=== PATIENT | male | born 1955 | race Caucasian/White ===

== ENCOUNTER 2019-12-01 20:04 | Emergency (ER) | payer BC ==
[~2019-12-01] VITALS: Ht 177.8 cm; Wt 105.5 kg
[~2019-12-01 20:04] MED LIST: ASPIRIN 81M81 MG/TA2 PO
[2019-12-01 20:29] LABS: BASO # 0.1 (0.0-0.2); BASO % 1.2 % (0.0-2.0); EOS # 0.3 (0.0-0.7); EOS % 3.7 % (0-4.0); GRAN # 4.5 (1.4-6.5); GRAN % 53.5 % (42.2-75.2); HEMATOCRIT 46.5 % (42.0-52.0); HEMOGLOBIN 16.1 g/dl (13.5-18.0); LYMPH # 2.5 (1.2-3.4); LYMPH % 29.3 % (20.0-51.0); MEAN CELL VOLUME 96 fl (80.0-100.0); MEAN CORPUSCULAR HEMOGLOBIN 33 pg (27.0-31.0); MEAN CORPUSCULAR HGB CONC 35 g/dl (33.0-37.0); MONO % 11.8 % (1.7-9.3); PLATELET COUNT 205 K/mm3 (130-400); RED BLOOD COUNT 4.86 M/mm3 (4.20-5.60); REDCELL DISTRIBUTION WIDTH-CV 12.8 % (11.5-14.5)
[2019-12-01 20:40] LABS: PARTIAL THROMBOPLASTIN TIME 30.9 SECONDS (26.0-37.0)
[2019-12-01 21:17] LABS: ALBUMIN 4.3 gm/dL (3.5-5.0); BILIRUBIN,TOTAL 0.5 mg/dL (0.0-1.0); CALCIUM 10.2 mg/dL (8.4-10.2); CREATININE, serum 0.91 (0.66-1.25); POTASSIUM 4.1 mmol/L (3.4-5.0); TOTAL PROTEIN 7.9 gm/dL (6.4-8.2)
[2019-12-01 21:32] LABS: TROPONIN-I 0.102 ng/mL (0.000-0.035)
[2019-12-01 22:00] VITALS: BP 132/82; PULSE 72; TEMP 98.7
== END 2019-12-01 22:14 | disposition short-term general hospital (02) ==
LOC: COL.ER 20:04
PROVIDERS: Family Medicine
DX: I20.0 Unstable angina (principal); I10 Essential (primary) hypertension; F17.210 Nicotine dependence, cigarettes, uncomplicated; Z79.82 Long term (current) use of aspirin
CPT/HCPCS: J1644; J2060

== ENCOUNTER 2020-02-19 12:43 | Outpatient (RCR) | payer BC | END 2020-02-24 07:13 | disposition home or self-care (01) | LOC: COL.CR 12:43 | DX: Z48.812 Encounter for surgical aftercare following surgery on the circulatory system (principal); Z95.1 Presence of aortocoronary bypass graft; I21.4 Non-ST elevation (NSTEMI) myocardial infarction; I25.110 Atherosclerotic heart disease of native coronary artery with unstable angina pectoris ==

== ENCOUNTER 2020-05-18 15:23 | Outpatient (RCR) | payer SELFPAY | END 2020-05-22 | disposition home or self-care (01) | LOC: COL.CR | DX: Z02.89 Encounter for other administrative examinations (principal) ==

== ENCOUNTER 2020-08-12 16:00 | Outpatient (RCR) | payer SELFPAY | END 2020-08-21 | disposition still patient (30) | LOC: COL.CR | DX: Z02.89 Encounter for other administrative examinations (principal) ==

== ENCOUNTER 2020-11-18 14:27 | Outpatient (RCR) | payer SELFPAY | END 2020-11-20 | disposition home or self-care (01) | LOC: COL.CR | DX: Z02.89 Encounter for other administrative examinations (principal) ==

== ENCOUNTER 2021-08-21 14:56 | Outpatient (RCR) | payer SELFPAY | END 2021-08-24 | LOC: COL.CR | DX: Z29.8 Encounter for other specified prophylactic measures (principal) ==

== ENCOUNTER 2021-10-20 12:09 | Outpatient (RCR) | payer SELFPAY | END 2021-10-24 | LOC: COL.CR | DX: Z29.8 Encounter for other specified prophylactic measures (principal) ==

== ENCOUNTER 2021-11-22 14:56 | Outpatient (RCR) | payer SELFPAY | END 2021-11-23 | LOC: COL.CR | DX: Z29.8 Encounter for other specified prophylactic measures (principal) ==

== ENCOUNTER 2021-12-22 13:07 | Outpatient (RCR) | payer SELFPAY | END 2021-12-24 | LOC: COL.CR | DX: Z29.8 Encounter for other specified prophylactic measures (principal) ==

== ENCOUNTER → 2022-01-24 | Outpatient (RCR) | payer SELFPAY | LOC: COL.CR | DX: Z29.8 Encounter for other specified prophylactic measures (principal) ==